=== PATIENT | male | born 1985 | race Caucasian/White ===

== ENCOUNTER 2017-10-17 03:19 | Inpatient (IN) ==
[2017-10-23] MEDS ORDERED: Acetaminophen 325 MG Tablet PO PRN (09:28)
[2017-10-23] MEDS ORDERED: Aluminum/Magnesium/Simethacone Susp 30 ML UDC PO PRN (09:28)
--- NOTE | 2017-10-23 15:42 | P.PNPSY ---
Subjective Remarks: Patient seen in his room with nurse Khang, patient sitting in Naomi chair watching TV patient calm pleasant no complaints to eating and sleeping well denying suicidality homicidality voices or visions for now continue treatment Review of Systems All other systems reviewed negative except as stated in HPI Mental Status Examination Appearance: Appropriate Consciousness: Alert Orientation: Person, Place, Date/Time Motor Activity: Other (Patient in Naomi chair) Speech: Speech impediment Language: Adequate Fund of Knowledge: Inadequate Attention and Concentration: Easily distracted Memory: Impaired Mood: Other (Euthymic) Affect: Other Thought Process & Associations: Linear Thought Content: Appropriate Hallucination Type: None Delusion Type: None Suicidal Ideation: No Suicidal Plan: No Suicidal Intention: No Homicidal Ideation: No Homicidal Plan: No Homicidal Intention: No Insight: Fair Judgment: Poor Assessment and Plan - Plan Plan: Estimated LOS: [] days Justification for Continued Inpatient Stay: At this time patient would decompensate a place to the lower level of care Discharge Planning: To be determined - Attending Attestation I have seen the patient and on the above dictation
[2017-10-23] MEDS: Baclofen 10 MG Tablet PO SCH ×2 (16:54→21:41)
[2017-10-23] MEDS: LORazepam 1 MG Tablet PO PRN (18:00)
[2017-10-24] MEDS: Baclofen 10 MG Tablet PO SCH ×3 (06:14→21:48)
[2017-10-24] MEDS: LORazepam 1 MG Tablet PO PRN ×2 (15:04→21:49)
--- NOTE | 2017-10-24 21:58 | P.PNPSY ---
Subjective Remarks: Patient seen for follow up; chart reviewed. Discussion with nursing staff reported that the patient continues to refuse medications with no behavioral disturbances. He was found sitting on hospital bed, calm and cooperative. He states that over the weekend he was visited by his parents which he states went well. He continues with persecutory delusions of the FBI but would not expound on the matter. Patient continues to believe that the medications will kill him. Review of Systems All other systems reviewed negative except as stated in HPI Mental Status Examination Appearance: Appropriate Consciousness: Alert Orientation: Person, Place, Date/Time Motor Activity: Other (Patient in Naomi chair) Speech: Speech impediment Language: Adequate Fund of Knowledge: Inadequate Attention and Concentration: Easily distracted Memory: Impaired Mood: Other (Euthymic) Affect: Other Thought Process & Associations: Linear Thought Content: Appropriate Hallucination Type: None Delusion Type: None Suicidal Ideation: No Suicidal Plan: No Suicidal Intention: No Homicidal Ideation: No Homicidal Plan: No Homicidal Intention: No Insight: Fair Judgment: Poor Assessment and Plan - Assessment (1) Unspecified psychosis Code(s): F29 - Unspecified psychosis not due to a substance or known physiological condition Status: Acute - Plan Plan: [place]et continues to refuse medications but did comply last night. Due to inconsistency in adherence will continue same dose. Attempt to reach patient's HCS was unsuccessful as plan to provide IM formulation if patient refuses PO. Continue current regimen and continue to encourage patient to adhere to treatment. Discharge planning in progress. Justification for Continued Inpatient Stay: At risk for further decompensation at lower level of care.
[2017-10-25] MEDS: Baclofen 10 MG Tablet PO SCH ×3 (06:31→21:22)
[2017-10-25] MEDS: LORazepam 1 MG Tablet PO PRN (20:20)
--- NOTE | 2017-10-25 21:26 | P.PNPSY ---
Subjective Remarks: Patient seen for follow up; chart reviewed. Discussion with nursing staff reported that the patient taking medications with food, slept well, no behavioral disturbances, continues with delusions. Patient was found sitting in bed, eating breakfast, calm and cooperative. Patient reports sleeping well, mood has been good, states that he does not want to take his medications due to continued believe that the medications will kill him. He agrees to comply but has yet to take medications without encouragement. He denies any perceptual disturbances nor expresses persecutory delusions but also noted to pause and appearing preoccupied at that time. Review of Systems All other systems reviewed negative except as stated in HPI Mental Status Examination Appearance: Appropriate Consciousness: Alert Orientation: Person, Place, Date/Time Motor Activity: Other (Patient in Naomi chair) Speech: Speech impediment Language: Adequate Fund of Knowledge: Inadequate Attention and Concentration: Easily distracted Memory: Impaired Mood: Other (Euthymic) Affect: Other Thought Process & Associations: Linear Thought Content: Appropriate Hallucination Type: None Delusion Type: Paranoid, Other (persecutory) Suicidal Ideation: No Suicidal Plan: No Suicidal Intention: No Homicidal Ideation: No Homicidal Plan: No Homicidal Intention: No Insight: Fair Judgment: Poor Assessment and Plan - Assessment (1) Unspecified psychosis Code(s): F29 - Unspecified psychosis not due to a substance or known physiological condition Status: Acute - Plan Plan: Patient has been more consistent with intake of medication, will continue to titrate risperidone to 1mg AM/2mg HS, continue rest of medications. Discharge planning in progress. Justification for Continued Inpatient Stay: At risk for further decompensation at lower level of care.
[2017-10-26] MEDS: Baclofen 10 MG Tablet PO SCH ×3 (06:02→21:04)
--- NOTE | 2017-10-26 15:03 | P.PNPSY ---
Subjective Remarks: Patient seen for follow-up, chart reviewed. Discussion with nursing staff reported that the patient with no recent episodes of crying continue to be reluctant to take medication on his own. Patient was found lying hospital bed noted B, cooperative. Patient says he is feeling "good" states that he had been not taking his medications because he believes medication will kill him but was explained extensively how medications would benefit him and importance of compliance which he agreed. Patient to take medications in front of writer editor and nurse today. Patient continues to deny any perceptional disturbances but continues to be very guarded when asked about delusions of persecution. Review of Systems All other systems reviewed negative except as stated in HPI Mental Status Examination Appearance: Appropriate Consciousness: Alert Orientation: Person, Place, Date/Time Motor Activity: Other (Patient in Naomi chair) Speech: Speech impediment Language: Adequate Fund of Knowledge: Inadequate Attention and Concentration: Easily distracted Memory: Impaired Mood: Other (ImprovingEuthymic) Affect: Anxious Thought Process & Associations: Linear Thought Content: Appropriate, Delusional Hallucination Type: None Delusion Type: Paranoid, Other (persecutory) Suicidal Ideation: No Suicidal Plan: No Suicidal Intention: No Homicidal Ideation: No Homicidal Plan: No Homicidal Intention: No Insight: Fair Judgment: Poor Assessment and Plan - Assessment (1) Unspecified psychosis Code(s): F29 - Unspecified psychosis not due to a substance or known physiological condition Status: Acute - Plan Plan: Patient this time was able to tolerate taking medications on his own although with encouragement. Patient not noted to have any more episodes of crying but continues to have delusions of persecution that medications will kill him. Patient noted to have less intensity of these delusions. Risperdal was recently increased therefore we will continue current dose for now but may require continued upward titration. We will continue to monitor mood and behavior. Discharge planning a progress. Justification for Continued Inpatient Stay: At risk for further decompensation if at lower level of care
[2017-10-27] MEDS: Baclofen 10 MG Tablet PO SCH ×2 (05:29→21:03)
--- NOTE | 2017-10-27 16:29 | P.PNPSY ---
Subjective Remarks: Patient seen for follow, chart reviewed. Discussion nursing staff reported the patient had refused medications this morning. Patient was presented to mental health court today and was retained for further psychiatric stabilization. Patient was later seen in hospital bed lying, cooperative interviewed. Patient states that he had not taken his medications this morning but was encouraged to take medication to comply with treatment with goal of patient stabilizing and going home soon. Patient agreed to take medications in front of television writer a nurse which he did. Patient reports good mood, denies any perceptional disturbances, did not comment on delusions of persecution, states eating and drinking well, tolerating medication well. Patient agrees to attend more groups now. Review of Systems All other systems reviewed negative except as stated in HPI Mental Status Examination Appearance: Appropriate Consciousness: Alert Orientation: Person, Place, Date/Time Motor Activity: Other (Patient in Naomi chair) Speech: Speech impediment Language: Adequate Fund of Knowledge: Inadequate Attention and Concentration: Easily distracted Memory: Impaired Mood: Other (ImprovingEuthymic) Affect: Anxious Thought Process & Associations: Linear Thought Content: Appropriate, Delusional Hallucination Type: None Delusion Type: Paranoid, Other (persecutory) Suicidal Ideation: No Suicidal Plan: No Suicidal Intention: No Homicidal Ideation: No Homicidal Plan: No Homicidal Intention: No Insight: Fair Judgment: Poor Assessment and Plan - Assessment (1) Unspecified psychosis Code(s): F29 - Unspecified psychosis not due to a substance or known physiological condition Status: Acute - Plan Plan: Patient appearing less anxious and distressed, but continues to have paranoia and suspiciousness about medications but did agree to take medications in front of television writer. Patient also continues with persistent delusions which he did not elaborate on today. We will continue to increase risperidone to 2 mg p.o. twice daily for psychosis. Continue rest of medications. Continue to monitor mood and behavior. Discharge planning a progress. Justification for Continued Inpatient Stay: At risk of further decompensation a lower level of care.
--- NOTE | 2017-10-27 17:53 | ECG ---
Date Performed: 10/27/2017 Time Performed: 16:21:44 PTAGE: 32 years EKG: SINUS TACHYCARDIA WITH SHORT [place] INTERVAL ABNORMAL RHYTHM ECG NO PREVIOUS TRACING DOCTOR: Petros Haney Interpretating Date/Time 10/27/2017 17:51:16
[2017-10-27] MEDS: LORazepam 1 MG Tablet PO PRN (20:11)
[2017-10-28] MEDS: Baclofen 10 MG Tablet PO SCH ×3 (15:42→21:32)
--- NOTE | 2017-10-28 16:19 | P.PNPSY ---
Subjective Remarks: Patient seen for follow, chart reviewed. Discussion with nursing staff reported the patient more visible on the unit refuse meds last night, but was adherent with much encouragement this morning. Patient was found in a wheelchair noted B, cooperative. Patient had refused medications this morning and required much encouragement which she did end up taking his medications in front of chief writer nurse. Patient continues to endorse delusions that there are snakes or gynecomastia him and that he is going to . Patient otherwise has no other physical complaints, supportive psychotherapy was provided and patient was encouraged to continue adherence to treatment. Review of Systems All other systems reviewed negative except as stated in HPI Mental Status Examination Appearance: Appropriate Consciousness: Alert Orientation: Person, Place, Date/Time Motor Activity: Other (Patient in Naomi chair) Speech: Speech impediment Language: Adequate Fund of Knowledge: Inadequate Attention and Concentration: Easily distracted Memory: Impaired Mood: Anxious Affect: Anxious Thought Process & Associations: Linear Thought Content: Appropriate, Delusional Hallucination Type: None Delusion Type: Paranoid, Other (persecutory) Suicidal Ideation: No Suicidal Plan: No Suicidal Intention: No Homicidal Ideation: No Homicidal Plan: No Homicidal Intention: No Insight: Fair Judgment: Poor Assessment and Plan - Assessment (1) Unspecified psychosis Code(s): F29 - Unspecified psychosis not due to a substance or known physiological condition Status: Acute - Plan Plan: Patient has had improvement in her adherence with medication when he is encouraged but continues to express delusions of paranoia and persecution and believes that he is going to . Risperidone recently increased therefore we will continue current dose for now and continue to monitor mood and behavior. Continue to encourage patient to adhere to medications that she will do so with encouragement. Discharge planning in progress. Justification for Continued Inpatient Stay: At risk for further decompensation if at lower level of care.
[2017-10-29] MEDS: LORazepam 1 MG Tablet PO PRN ×2 (13:03→20:48)
--- NOTE | 2017-10-29 14:18 | P.PNPSY ---
Subjective Remarks: Reviewed electronic medical record and discussed case with staff. Staff report that patient continues to refuse medications and has bouts of inconsolable sobbing. Follow-up was conducted in patient's room with CHARLEY Sy present. Patient was found talking on the phone with his father. Patient was able to engage in conversation. He stated that he had been sleeping and had a good appetite. While discussing his families recent move to [place], patient became unresponsive with what appeared to be some nystagmus. He required multiple verbal and physical attempts to get a response. When after ~ 1 minute he opened his eyes, patient said "hello" as if seeing us for the first time. He denied memory of having been speaking with us. He then continued responding to questions normally. Consulted with Dr Magallon. A head CT and EEG have been ordered. Mental Status Examination Appearance: Appropriate Consciousness: Alert Orientation: Person, Place, Date/Time Motor Activity: Other (Patient in Naomi chair) Speech: Speech impediment Language: Adequate Fund of Knowledge: Inadequate Attention and Concentration: Easily distracted Memory: Impaired Mood: Anxious Affect: Anxious Thought Process & Associations: Linear Thought Content: Appropriate, Delusional Hallucination Type: None Delusion Type: Paranoid, Other (persecutory) Suicidal Ideation: No Suicidal Plan: No Suicidal Intention: No Homicidal Ideation: No Homicidal Plan: No Homicidal Intention: No Insight: Fair Judgment: Poor Assessment and Plan - Plan Plan: Patient has had improvement in her adherence with medication when he is encouraged but continues to express delusions of paranoia and persecution and believes that he is going to . Risperidone recently increased therefore we will continue current dose for now and continue to monitor mood and behavior. Continue to encourage patient to adhere to medications that she will do so with encouragement. Discharge planning in progress. Justification for Continued Inpatient Stay: Moving this patient to a less restrictive environment would likely result in decompensation.
[2017-10-29] MEDS: Baclofen 10 MG Tablet PO SCH (15:45)
--- NOTE | 2017-10-29 21:59 | CT ---
EXAM DATE: 10/29/2017 9:47 PM EDT AGE/SEX: 32 years / Male INDICATIONS: Altered mental status. CLINICAL DATA: This is the patient's initial encounter. Patient reports that signs and symptoms have been present for 1 day and indicates a pain score of Nonresponsive. MEDICAL/SURGICAL HISTORY: Non-responsive. Non-responsive. RADIATION DOSE: 56.35 CTDI (mGy) COMPARISON: No prior exams available for comparison. TECHNIQUE: CT of the head without contrast. Using automated exposure control and adjustment of the mA and/or kV according to patient size, radiation dose was kept as low as reasonably achievable to ob tain optimal diagnostic quality images. DICOM format image data is available electronically for revi ew and comparison. 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 No acute intracranial mass, hemorrha ge or midline shift. Posterior Fossa: The cerebellum and brainstem are intact. The 4th ventricle is midline. The cerebellopontine angle is unremarkable. Extracranial: The visualized portion of the orbits is intact. Skull: The calvaria is intact. No evidence of skull fracture. CONCLUSION: 1. No acute findings. 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 Electronically signed by: Dallas Garcia MD 10/29/2017 9:58 PM EDT
--- NOTE | 2017-10-30 10:44 | P.PNPSY ---
Subjective Remarks: Patient seen for follow-up, chart reviewed. Discussion nursing staff reported patient did not take his medications willingly last evening, head CT scan done yesterday along with EEG, patient slept. Patient was found lying hospital bed watching television noted be good spirits stating that he is feeling "good". Patient reports having visited by his parents also went well. Patient denying physical complaints at this time denying any auditory or visual hallucinations, and denying that the FBI is after him. Patient denies any SI or HI. Patient was encouraged to continue to adhere to medications which she agreed. Review of Systems All other systems reviewed negative except as stated in HPI Mental Status Examination Appearance: Appropriate Consciousness: Alert Orientation: Person, Place, Date/Time Motor Activity: Other (Patient in Naomi chair) Speech: Speech impediment Language: Adequate Fund of Knowledge: Inadequate Attention and Concentration: Easily distracted Memory: Impaired Mood: Appropriate Affect: Appropriate Thought Process & Associations: Intact, Linear Thought Content: Delusional (Lessening) Hallucination Type: None Delusion Type: Paranoid, Other (persecutory) Suicidal Ideation: No Suicidal Plan: No Suicidal Intention: No Homicidal Ideation: No Homicidal Plan: No Homicidal Intention: No Insight: Fair Judgment: Poor Assessment and Plan - Assessment (1) Unspecified psychosis Code(s): F29 - Unspecified psychosis not due to a substance or known physiological condition Status: Acute - Plan Plan: Patient this time continues to improve and adherence of medications, denying any perceptional services or delusions today. We will continue current treatment. We will continue to encourage patient to adhere to medications. Continue to monitor mood and behavior. CT of the head showed no acute findings , EEG report pending. Discharge planning a progress. Justification for Continued Inpatient Stay: At risk for further decompensation if at lower level of care
[2017-10-30] MEDS: Baclofen 10 MG Tablet PO SCH ×2 (15:01→21:23)
--- NOTE | 2017-10-30 20:36 | MG ---
cc: Lance Joyce MD, PhD DATE OF STUDY: 10/29. TEST NUMBER: [id number]. TECHNIQUE: 17-channel EEG. DESCRIPTION: The background rhythm reveals symmetrical alpha rhythm, frequency 8 Hertz, amplitude is about 20 microvolts. There is some slowing in the theta range during drowsiness. Some muscle artifact is present. There are no lateralizing features. There are no epileptiform discharges. Photic stimulation was done in a stepwise fashion with a normal driving response. INTERPRETATION: Normal EEG. Lance Joyce MD, PhD MONALISA/EMERITA , 07:06 PM , 08:34 PM
[2017-10-31] MEDS: Baclofen 10 MG Tablet PO SCH ×4 (06:13→21:05)
--- NOTE | 2017-10-31 17:25 | P.PNPSY ---
Subjective Remarks: Patient seen for follow-up, chart reviewed. Discussion with nursing staff reported that the patient refused medications this morning, was able to work with physical therapy was patient was able to walk down the [place]ake with walker without assistance. No episodes of crying or labile mood noted recently. Patient was found to be calm and cooperative with interview, patient states that he is feeling "good" denying any auditory or visual hallucinations, denying any paranoid depression or delusions specifically with the FBI. Patient continues to state that he feels that he will but was easily redirected. Patient states that he usually watches television with which makes him feel better at the locker feel this fear of dying. Patient reports sleeping well, eating and drinking well. Patient was reminded the importance of adherence to treatment which she agreed to. Review of Systems All other systems reviewed negative except as stated in HPI Mental Status Examination Appearance: Appropriate Consciousness: Alert Orientation: Person, Place, Date/Time Motor Activity: Other (Patient in Naomi chair) Speech: Speech impediment Language: Adequate Fund of Knowledge: Inadequate Attention and Concentration: Easily distracted Memory: Impaired Mood: Appropriate Affect: Appropriate Thought Process & Associations: Intact, Linear Thought Content: Delusional (Lessening) Hallucination Type: None Delusion Type: Bizarre (That he will ) Suicidal Ideation: No Suicidal Plan: No Suicidal Intention: No Homicidal Ideation: No Homicidal Plan: No Homicidal Intention: No Insight: Fair Judgment: Poor Assessment and Plan - Assessment (1) Unspecified psychosis Code(s): F29 - Unspecified psychosis not due to a substance or known physiological condition Status: Acute - Plan Plan: Patient noted with improvement in mood and affect, no longer with labile or episode crying spells. Patient continues to have some residual bizarre delusions that he will although easily redirected. Patient continues to have some reluctance in adhering to medications by mouth willingly and needs continues to need encouragement. We will continue current treatment. We will continue to monitor mood and behavior. We will meet with patient's family to arrange for possible discharge soon. Discharge planning in progress Justification for Continued Inpatient Stay: At risk for further decompensation if at lower level of care
[2017-11-01] MEDS: Baclofen 10 MG Tablet PO SCH ×6 (06:40→21:49)
[2017-11-01] MEDS: LORazepam 1 MG Tablet PO PRN ×2 (08:42→19:46)
--- NOTE | 2017-11-01 15:32 | P.PNPSY ---
Subjective Remarks: Patient seen for follow-up, chart reviewed. Discussion with nursing staff reported the patient had episode of crying and screaming this morning stated that he is going to but was able to be redirected. Patient also compliant with medications willingly. Patient was found later sitting in hospital bed noted B, cooperative. Patient states that he had felt upset this morning believing he is going to but states that these episodes of these thoughts come less frequent and less intense and usually is able to distract himself with watching television when he has these thoughts. Patient agreed to continue taking medications as directed as he states he would like to be able to go home. Patient denies any perceptual services, denying feeling of persecution continues to have occasional thoughts that he will but noted to be able to be redirected. Review of Systems All other systems reviewed negative except as stated in HPI Mental Status Examination Appearance: Appropriate Consciousness: Alert Orientation: Person, Place, Date/Time Motor Activity: Other (Patient in Naomi chair) Speech: Speech impediment Language: Adequate Fund of Knowledge: Inadequate Attention and Concentration: Easily distracted Memory: Impaired Mood: Appropriate Affect: Appropriate Thought Process & Associations: Intact, Linear Thought Content: Delusional (Lessening) Hallucination Type: None Delusion Type: Bizarre (That he will ) Suicidal Ideation: No Suicidal Plan: No Suicidal Intention: No Homicidal Ideation: No Homicidal Plan: No Homicidal Intention: No Insight: Fair Judgment: Poor Assessment and Plan - Assessment (1) Unspecified psychosis Code(s): F29 - Unspecified psychosis not due to a substance or known physiological condition Status: Acute - Plan Plan: Patient this time noted with increased compliance with medications as he is now is p.o. meds. Patient continues to have occasional episodes of worry and anxiety believing that he will but easily redirectable now less episodes. Patient to continue current treatment. We will continue to monitor mood and behavior. We will contact patient's family to start arrange for discharge. This was planning a progress. Justification for Continued Inpatient Stay: At risk for further decompensation if at lower level of care
[2017-11-02] MEDS: LORazepam 1 MG Tablet PO PRN (08:08)
[2017-11-02] MEDS: Baclofen 10 MG Tablet PO SCH ×2 (14:25→17:45)
--- NOTE | 2017-11-02 16:24 | P.DSPSY ---
Psychiatry Discharge Summary Inpatient Psychiatric care?: Yes Advance Directives: No Mental Health Advance Directive: No Health Care Proxy: No - Admission Admission Date: October 17, 2017 11:50 - Admission Diagnosis (1) Unspecified psychosis Code(s): F29 - Unspecified psychosis not due to a substance or known physiological condition Brief History: Patient is a 32-year-old man, single, from [place], recently moved from [place] to [place] one week ago domiciled with mother father and brother, with a past psychiatric history of depression, anxiety, multiple psychiatric admissions, recently discharged from the inpatient psychiatry unit but has had 2 previous admissions within the past year, 2 previous suicide attempts last time being one half months ago, with a past medical history significant for cerebral palsy who presented to the ED accompanied by parents due to increased agitation, suicidal ideation, poor sleep, paranoid along with persecutory delusions in the context of recent medication changes which patient was admitted to the inpatient psychiatry unit for further evaluation and management. As per chart patient in the ED was noted to be aggressive toward father having swelling in him grabbing his arm, also noted to be screaming and yelling that FBI is after him. Patient was found on the unit sitting in wheelchair and noted to be, cooperative. Patient states he is feeling "okay" reports having difficulty with sleep for the past couple of days with slept better last evening. Patient states that his mood has been depressed stating " I am facing at the sentence" for the past 4 months along with suicide ideations for the past 4 months as well but unwilling to elaborate on this statement. Patient denies any suicide ideation at this time contract for safety, reports adequate appetite and energy but reports decreased concentration and unclear with patient has been having auditory hallucinations although he denies he states that his parents felt that he was hearing voices. Patient also noted with paranoid persecutory delusions that people are after him from the government specifically the FBI but did not want to elaborate. At this time patient reports feeling "good" contract for safety, denying suicide ideations at this time continues with paranoid and persecutory delusions. Family history cancer history: Brother with bipolar disorder Past psychiatric history: Previous psychiatric diagnoses of depression, anxiety , multiple psychiatric admissions, 2 within this past year, recently discharged from inpatient psychiatry unit prior to moving to [place], 2 previous suicide attempts last time being 1-1/2 months ago via stabbing himself in the legs, first attempt was having wrapped shoelaces around his neck but stopped by his father. Patient reports previous psychiatric medication trials with quetiapine , Geodon, Depakote, Zyprexa, risperidone and trazodone. Substance use history: Alcohol use occasionally, denies use of any other drugs. Past medical history: Cerebral palsy Allergies: NKDA Social history: From [place], moved to [place] one week ago domiciled with mother father and brother. Tobacco Use In Past 30 Days: No How Often Do You Have a Drink Containing Alcohol: Monthly or less Hospital Course: Patient is a 32-year-old man, single, from [place], recently moved from [place] to [place] one week ago domiciled with mother father and brother, with a past psychiatric history of depression, anxiety, multiple psychiatric admissions, recently discharged from the inpatient psychiatry unit but has had 2 previous admissions within the past year, 2 previous suicide attempts last time being one half months ago, with a past medical history significant for cerebral palsy who presented to the ED accompanied by parents due to increased agitation, suicidal ideation, poor sleep, paranoid along with persecutory delusions in the context of recent medication changes which patient was admitted to the inpatient psychiatry unit for further evaluation and management. Patient was seen and examined on the unit by psychiatry. Patient was started on risperidone and titrated to 2mg PO BID, continued on citalopram 40mg PO daily which patient tolerated well with no adverse drug reactions noted. Patient was continued on medications for chronic medical issues. There was no evidence of any suicidality or homicidality on the inpatient unit nor any episodes of aggression but had episodes of emotional distress from delusion of thinking that he was going to but ceased throughout progression of treatment. Patient had challenges with consistent compliance with medications, noted to have stable mood and appropriate behavior on the unit. Patient's behavior had been noted to be calm, cooperative, stable mood and noted to have improvement in mood and noted to be participatory and cooperative with staff with no behavioral disturbances. Patient agrees to continue mental health treatment. Counselor has made follow-up arrangements for continuity of care. On the day of discharge: Patient seen and examined with nurse and counselor. Chart reviewed. Case discussed with nurse and counselor. No behavioral issues overnight. On my examination today, the patient is agreeable to outpatient follow up and will discharged back to family. I can elicit no mood symptoms; no perceptual disturbances. No delusional material verbalized today. No physical complaints. Suicide and violence risk assessment on day of discharge both suggest lower imminent risk, and the patient's level of function is adequate for planned level of outpatient care. Patient has maximized benefit from this inpatient psychiatric hospital stay and will be discharged to back to his residence today with follow-up as arranged by counselor. Patient advised to return to psychiatric emergency room for any concerning psychiatric symptoms. Patient agrees with plan. - Discharge Discharge Date: 11/02/17 - Discharge Diagnosis (1) Unspecified psychosis Code(s): F29 - Unspecified psychosis not due to a substance or known physiological condition Status: Acute Discharge Disposition: Home - Discharge Instructions Discharge Diet: Regular Diet Activities You Can Perform: Weight Bearing As Tolerat - Discharge Time > 30 minutes Mental Status Examination Appearance: Appropriate Consciousness: Alert Orientation: Person, Place, Date/Time Motor Activity: Other (Patient in Naomi chair) Speech: Speech impediment Language: Adequate Fund of Knowledge: Inadequate Attention and Concentration: Easily distracted Memory: Impaired Mood: Appropriate Affect: Appropriate Thought Process & Associations: Intact, Linear Thought Content: Appropriate Hallucination Type: None Delusion Type: None Suicidal Ideation: No Suicidal Plan: No Suicidal Intention: No Homicidal Ideation: No Homicidal Plan: No Homicidal Intention: No Insight: Fair Judgment: Impulsive Discharge/Advance Care Plan - Results Vital Signs: Last Vital Signs Temp 98.2 F 11/02/17 04:00 Pulse 90 11/02/17 04:00 Resp 17 11/02/17 04:00 BP 119/56 L 11/02/17 04:00 Pulse Ox 94 L 11/02/17 04:00 Lab Results: Laboratory Results Hemoglobin A1c 4.4 % (4.3-6.0) 10/18/17 08:55 Triglycerides 107 MG/DL (42-150) 10/18/17 08:55 Cholesterol 110 MG/DL (120-200) L 10/18/17 08:55 HDL Cholesterol 38.4 MG/DL (40.0-60.0) L 10/18/17 08:55 Summary of Procedures: none Imaging: ITS Impressions Head CT 10/29/17 00:00 CONCLUSION: 1. No acute findings. 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 Pending Results: None - Medications Number of antipsychotic medications at discharge: 1 - Discharge Care Plan Goals to Promote Your Health: * To prevent worsening of your condition and complications * To maintain your health at the optimal level Directions to Meet Your Goals: Take your medications as prescribed Follow your dietary instruction Follow activity as directed Keep your appointments as scheduled Take your immunizations and boosters as scheduled If your symptoms worsen call your PCP, if no PCP go to Urgent Care Center or Emergency Room For 24/ questions related to your inpatient stay or results of tests pending at discharge, please contact Dr. David Magallon MD at Smoking is Dangerous to Your Health. Avoid second hand smoking
== END 2017-11-02 18:15 | disposition home or self-care (01) ==
LOC: H4EA 11:50
PROVIDERS: ADMIT Student in an Organized Health Care Education/Training Program; ATTEND Student in an Organized Health Care Education/Training Program